=== PATIENT | male | born 1990 | race African-American/Black ===

== ENCOUNTER 2016-10-17 23:19 | Emergency (ER) | payer BC ==
[2016-10-17 23:25] VITALS: BP 127/77; PULSE 72; TEMP 98; BMI 28.2
--- NOTE | 2016-10-18 00:20 | PDOC ---
History of Present Illness <Kwame Navarro - Last Filed: 10/18/16 00:20> - General History Source: Patient Exam Limitations: No Limitations - History of Present Illness Initial Comments: 10/18/16 00:45 The patient is a 25 year old male, with a significant past medical history of asthma, who presents to the emergency department with a cough and nasal congestion for the past 2 weeks. He states that his cough is productive of a yellow sputum. He denies any fever. He denies taking anything for his symptoms. The patient denies chest pain, shortness of breath, headache and dizziness. Denies fever, chills, nausea, vomit, diarrhea and constipation. Allergies: None Past surgical history: None reported Social history: No alcohol, tobacco or drug use reported <Jones Reyes - Last Filed: 10/18/16 00:45> - General Chief Complaint: Cold Symptoms Stated Complaint: COLD SYMPTOMS Past History - Past Medical History Asthma: Yes Other medical history: hep b - Immunization History Immunization Up to Date: Yes - Psycho/Social/Smoking Cessation Hx Anxiety: No Suicidal Ideation: No Smoking Status: No Smoking History: Never smoked Number of Cigarettes Smoked Daily: 0 Hx Alcohol Use: No Drug/Substance Use Hx: No <RamonKwame - Last Filed: 10/18/16 00:20> <Jones Reyes - Last Filed: 10/18/16 00:45> - Past Medical History Allergies/Adverse Reactions: Allergies Allergy/AdvReac Type Severity Reaction Status Date / Time shellfish derived Allergy Verified 10/17/16 23:22 Home Medications: Ambulatory Orders Azithromycin [Zithromax Tri-Checo (3 DAYS) -] 500 mg PO DAILY #3 tablet 10/18/16 Review of Systems - Review of Systems Able to Perform ROS?: Yes Comments:: 10/18/16 00:45 GENERAL/CONSTITUTIONAL: No fever or chills. No weakness. HEAD, EYES, EARS, NOSE AND THROAT: +Nasal congestion. No change in vision. No ear pain or discharge. No sore throat. CARDIOVASCULAR: No chest pain or shortness of breath RESPIRATORY: +Cough. No wheezing, or hemoptysis. GASTROINTESTINAL: No nausea, vomiting, diarrhea or constipation. GENITOURINARY: No dysuria, frequency, or change in urination. MUSCULOSKELETAL: No joint or muscle swelling or pain. No neck or back pain. SKIN: No rash NEUROLOGIC: No headache, vertigo, loss of consciousness, or change in strength/ sensation. ENDOCRINE: No increased thirst. No abnormal weight change HEMATOLOGIC/LYMPHATIC: No anemia, easy bleeding, or history of blood clots. ALLERGIC/IMMUNOLOGIC: No hives or skin allergy. <Jones Reyes - Last Filed: 10/18/16 00:45> *Physical Exam - Vital Signs Last Vital Signs Temp Pulse Resp BP Pulse Ox 98 F 72 18 127/77 100 10/17/16 23:23 10/17/16 23:23 10/17/16 23:23 10/17/16 23:23 10/17/16 23:23 <Kwame Navarro - Last Filed: 10/18/16 00:20> - Vital Signs Last Vital Signs Temp Pulse Resp BP Pulse Ox 98 F 72 18 127/77 100 10/17/16 23:23 10/17/16 23:23 10/17/16 23:23 10/17/16 23:23 10/17/16 23:23 - Physical Exam Comments: 10/18/16 00:45 GENERAL: Awake, alert, and fully oriented, in no acute distress HEAD: No signs of trauma, normocephalic, atraumatic EYES: PERRLA, EOMI, sclera anicteric, conjunctiva clear ENT: Auricles normal inspection, hearing grossly normal, nares patent, oropharynx clear without exudates. Moist mucosa NECK: Normal ROM, supple, no lymphadenopathy, JVD, or masses LUNGS: No distress, speaks full sentences, clear to auscultation bilaterally HEART: Regular rate and rhythm, normal S1 and S2, no murmurs, rubs or gallops, peripheral pulses normal and equal bilaterally. ABDOMEN: Soft, nontender, normoactive bowel sounds. No guarding, no rebound. No masses EXTREMITIES: Normal inspection, Normal range of motion, no edema. No clubbing or cyanosis. NEUROLOGICAL: Cranial nerves II through XII grossly intact. Normal speech, normal gait, no focal sensorimotor deficits SKIN: Warm, Dry, normal turgor, no rashes or lesions noted. <Jones Reyes - Last Filed: 10/18/16 00:45> *DC/Admit/Observation/Transfer <Kwame Navarro - Last Filed: 10/18/16 00:20> - Attestations Scribe Attestion: 10/18/16 00:45 Documentation prepared by Jones Reyes, acting as medical assistant dermatology for Kwame Navarro MD. <Jones Reyes - Last Filed: 10/18/16 00:45> Diagnosis at time of Disposition: Sinusitis - Discharge Dispostion Disposition: HOME Condition at time of disposition: Stable - Prescriptions Prescriptions: Azithromycin [Zithromax Tri-Checo (3 DAYS) -] 500 mg PO DAILY #3 tablet - Referrals Referrals: Ren Baldwin MD [Primary Care Provider] - - Patient Instructions Printed Discharge Instructions: Sinusitis, Common Cold
== END 2016-10-18 00:28 | disposition home or self-care (01) ==
LOC: JER 23:19
DX: J32.9 Chronic sinusitis, unspecified (principal); J45.909 Unspecified asthma, uncomplicated
CPT/HCPCS: 99281-25

== ENCOUNTER 2020-12-05 14:08 | Emergency (ER) | payer BC, OTHER ==
[2020-12-05 14:22] VITALS: BP 131/80; PULSE 70; TEMP 97.9; BMI 29.5
[2020-12-05] MEDS ORDERED: IBUPROFEN 400 MG TABLET (FP) PO ONE ×2 (14:52)
== END 2020-12-05 15:00 | disposition home or self-care (01) ==
LOC: JERFT 14:08
DX: M25.562 Pain in left knee (principal)
CPT/HCPCS: 99283-25